=== PATIENT | female | born 1950 | race Caucasian/White ===

== ENCOUNTER 2017-08-15 19:28 | Emergency (ER) | payer MEDICARE ==
[2017-08-15 19:34] VITALS: RESP 18
[2017-08-15] MEDS ORDERED: IPRATROPIUM-ALBUTEROL 3 ML NEB INHALATION STA ×2 (20:02→20:04)
[2017-08-15] MEDS ORDERED: predniSONE 20 MG TAB PO STA (20:02)
--- NOTE | 2017-08-15 20:48 | XR ---
EXAMINATION TYPE: XR chest 2V DATE OF EXAM: 08/15/2017 COMPARISON: NONE HISTORY: Short of breath TECHNIQUE: Frontal and lateral views of the chest are obtained. FINDINGS: There is no heart failure nor confluent pneumonic infiltrate. Thoracic aorta is atheromato us. There is coarsening of interstitial markings. There is no pleural effusion. IMPRESSION: Interstitial fibrotic changes. No heart failure seen.
--- NOTE | 2017-08-15 21:27 | ED ---
SOB HPI - General Chief Complaint: Shortness of Breath Stated Complaint: JORDAN Time Seen by Provider: 08/15/17 19:56 Source: patient Mode of arrival: EMS Limitations: no limitations - History of Present Illness Initial Comments: This 67-year-old white female presents complaining of some nasal congestion as well as some shortness of breath. She states that this just started several hours prior to arrival. She also has had a cough with whitish production over the last 2-3 days. She denies any fevers or chest pain. She denies any known cardiac or pulmonary issues. She does have long-standing history of tobacco abuse. She states that she had significant nasal congestion where she could not breathe through her nose earlier tonight. No other complaints or modifying factors. - Related Data Home Medications Medication Instructions Recorded Confirmed Atorvastatin [Lipitor] 40 mg PO HS 06/08/16 08/15/17 Etodolac [Lodine] 400 mg PO BID 06/08/16 08/15/17 Levothyroxine Sodium [Levoxyl] 100 mcg PO DAILY 06/08/16 08/15/17 Loratadine [Claritin] 10 mg PO DAILY PRN 08/15/17 08/15/17 Previous Rx's Medication Instructions Recorded Albuterol Sulfate [Proair Hfa] 1 - 2 puff INHALATION Q6HR PRN #1 08/15/17 inhaler Azithromycin [Zithromax Z-pack] 0 mg PO DIRECTED #6 tab 08/15/17 Ipratropium-Albuterol Nebulize 3 ml INHALATION Q4H #50 neb 08/15/17 [Duoneb 0.5 mg-3 mg/3 ml Soln] predniSONE 20 mg PO BID #10 tab 08/15/17 Allergies Allergy/AdvReac Type Severity Reaction Status Date / Time No Known Allergies Allergy Verified 08/15/17 20:36 Review of Systems ROS Statement: Those systems with pertinent positive or pertinent negative responses have been documented in the HPI. ROS Other: All systems not noted in ROS Statement are negative. Past Medical History Past Medical History: Hyperlipidemia, Thyroid Disorder History of Any Multi-Drug Resistant Organisms: None Reported Past Surgical History: Hysterectomy Additional Past Surgical History / Comment(s): COLONOSCOPY Past Anesthesia/Blood Transfusion Reactions: Motion Sickness Past Psychological History: No Psychological Hx Reported Smoking Status: Heavy tobacco smoker Past Alcohol Use History: None Reported Past Drug Use History: None Reported - Past Family History Sister(s) Family Medical History: Cancer General Exam - General Exam Comments Initial Comments: GENERAL: The patient is well nourished and well hydrated. VITAL SIGNS: Heart rate, blood pressure, respiratory rate reviewed as recorded in nurse's notes. EYES: Pupils are round and reactive. Extraocular movements are intact. No conjunctival / lid redness or swelling. ENT: No external evidence of injury, swelling, or ecchymosis. Airway is patent. Throat is clear. There is moderate nasal congestion noted. NECK: Nontender. No swelling or evidence of injury. No subcutaneous emphysema. Trachea is midline. No thyroid mass. HEART: Regular rate and rhythm. Good peripheral pulses. LUNGS/CHEST: There is slight decreased aeration bilateral lungs. No rales, rhonchi, or wheezes. No ecchymosis, subcutaneous emphysema, or tenderness. ABDOMEN: Abdomen soft without tenderness. No palpable masses or organomegaly. No peritoneal signs. No abdominal wall swelling or ecchymosis. EXTREMITIES: No extremity tenderness. Normal muscle tone and function. No thoracolumbar tenderness. NEUROLOGIC: Sensation is grossly intact. Cranial nerve exam reveals face is symmetrical, tongue is midline, speech is clear. SKIN: No abrasions or ecchymosis is noted. No induration or masses noted. PSYCHIATRIC: Alert and oriented. Appropriate behavior and judgment. Limitations: no limitations Course Vital Signs 08/15/17 08/15/17 08/15/17 19:29 20:13 20:33 Temperature 98.6 F Pulse Rate 79 77 83 Respiratory 18 18 Rate Blood Pressure 125/68 124/65 O2 Sat by Pulse 97 98 Oximetry 08/15/17 20:53 Temperature Pulse Rate 88 Respiratory Rate Blood Pressure O2 Sat by Pulse Oximetry Medical Decision Making - Medical Decision Making The patient was seen and examined. All diagnostics were reviewed. She did receive a double DuoNeb breathing treatment when noted moderate relief of her symptoms. She also received 60 mg of prednisone orally. She had a chest x-ray which did show some degree of pulmonary fibrosis but no infiltrate or evidence of congestive heart failure. His felt as though she likely does have a degree of COPD exacerbation. She may have a degree of bronchitis and sinusitis as well. It is felt as though she is stable for discharge with the following disposition and she leaves in no distress. Return parameters are discussed. Disposition Clinical Impression: COPD (chronic obstructive pulmonary disease), Bronchitis, Tobacco abuse, Sinusitis Disposition: HOME SELF-CARE Condition: Good Additional Instructions: Please use the nebulizer machine when at home and the inhaler when you are away from home. Prescriptions: Albuterol Sulfate [Proair Hfa] 1 - 2 puff INHALATION Q6HR PRN #1 inhaler PRN Reason: Shortness Of Breath Or Wheezing Azithromycin [Zithromax Z-pack] 0 mg PO DIRECTED #6 tab Ipratropium-Albuterol Nebulize [Duoneb 0.5 mg-3 mg/3 ml Soln] 3 ml INHALATION Q4H #50 neb predniSONE 20 mg PO BID #10 tab Referrals: Tyler Saez DO [Primary Care Provider] - 1-2 days Time of Disposition: 21:25
--- NOTE | 2017-08-15 21:33 | ED ---
Disposition Clinical Impression: COPD (chronic obstructive pulmonary disease), Bronchitis, Tobacco abuse, Sinusitis Disposition: HOME SELF-CARE Condition: Good Additional Instructions: Please use the nebulizer machine when at home and the inhaler when you are away from home. Prescriptions: Albuterol Sulfate [Proair Hfa] 1 - 2 puff INHALATION Q6HR PRN #1 inhaler PRN Reason: Shortness Of Breath Or Wheezing Azithromycin [Zithromax Z-pack] 0 mg PO DIRECTED #6 tab Ipratropium-Albuterol Nebulize [Duoneb 0.5 mg-3 mg/3 ml Soln] 3 ml INHALATION Q4H #50 neb predniSONE 20 mg PO BID #10 tab Referrals: Tyler Saez DO [Primary Care Provider] - 1-2 days Savita Cabrera MD [STAFF PHYSICIAN] - 08/22/17
[2017-08-15 21:39] VITALS: BP 123/75; PULSE 100; TEMP 97.6
== END 2017-08-15 21:40 | disposition home or self-care (01) ==
LOC: EC 19:28
DX: J44.9 Chronic obstructive pulmonary disease, unspecified (principal); J32.9 Chronic sinusitis, unspecified; E78.5 Hyperlipidemia, unspecified; E07.9 Disorder of thyroid, unspecified; F17.200 Nicotine dependence, unspecified, uncomplicated; Z79.899 Other long term (current) drug therapy
CPT/HCPCS: 94640; 71020; 99285; J7512

== ENCOUNTER → 2018-06-09 | Outpatient (CLI) | payer MEDICARE ==
--- NOTE | 2018-06-12 12:39 | MM ---
Reason for exam: screening (asymptomatic). Last mammogram was performed 2 years and 8 months ago. History: Patient is postmenopausal and has history of endometrial cancer at age 46. Took estrogen for 1 year. Physical Findings: A clinical breast exam by your physician is recommended on an annual basis and results should be correlated with mammographic findings. MG Screening Mammo w CAD Bilateral CC and MLO view(s) were taken. Prior study comparison: October 20, 2015, bilateral MG screening mammo w CAD. August 13, 2014, left breast MG work up mamm w CAD LT. The breast tissue is heterogeneously dense. This may lower the sensitivity of mammography. New nodular density upper inner left breast middle third position. ASSESSMENT: Incomplete: need additional imaging evaluation, BI-RAD 0 RECOMMENDATION: Special view mammogram of the left breast. If lesion persists on supplemental views, image directed ultrasound is recommended. [facility] will attempt to contact patient to return for supplemental views and ultrasound if indicated.
== END | disposition home or self-care (01) ==
LOC: RADMAMWWP 15:27
PROVIDERS: ATTEND Family Medicine
DX: Z12.31 Encounter for screening mammogram for malignant neoplasm of breast (principal)
CPT/HCPCS: 77067

== ENCOUNTER → 2018-06-19 | Outpatient (CLI) | payer MEDICARE ==
--- NOTE | 2018-06-19 13:44 | MM ---
Reason for exam: additional evaluation requested from abnormal screening. Last mammogram was performed less than 1 month ago. History: Patient is postmenopausal and has history of endometrial cancer at age 46. Took estrogen for 1 year. Physical Findings: Nurse did not find any significant physical abnormalities on exam. MG Work Up Mamm w CAD LT Spot compression CC, spot compression MLO, and ML view(s) were taken of the left breast. Prior study comparison: June 09, 2018, bilateral MG screening mammo w CAD. October 20, 2015, bilateral MG screening mammo w CAD. The breast tissue is heterogeneously dense. This may lower the sensitivity of mammography. There is chronic nodularity in the left breast. No distinct new lesion persists at area of mammographic concern. These results were verbally communicated with the patient and result sheet given to the patient on 06/19/18. ASSESSMENT: Benign, BI-RAD 2 RECOMMENDATION: Return to routine screening mammogram schedule for both breasts.
== END | disposition home or self-care (01) ==
LOC: RADMAMWWP 12:48
DX: R92.8 Other abnormal and inconclusive findings on diagnostic imaging of breast (principal)
CPT/HCPCS: 77065

== ENCOUNTER → 2023-05-04 | Outpatient (CLI) | payer MEDICARE ==
--- NOTE | 2023-05-05 08:13 | CTL ---
EXAMINATION TYPE: CT Low Dose Lung DATE OF EXAM ORDERED: 05/04/2023 COMPARISON: None HISTORY: . Low Dose CT Lung Screening CT DLP: 66.[address] CTDI: 2.1 mGy IV CONTRAST USED: None. SCREENING VISIT: First visit COMPARISON: None. TECHNIQUE: Low dose computed tomography scan was performed through the chest at 1 millimeter thick se ctions and reconstructed images in the coronal plane at [address] DIAGNOSTIC QUALITY: Satisfactory FINDINGS: LUNG NODULES: Not presentLeft lung: no nodules identified.Right lung: no nodules identified. LUNGS: COPD: Severity: Mild Fibrosis: Severity:None Lymph nodes: None Other findings: None RIGHT PLEURAL SPACE: Effusion: None Calcification: None Thickening: None Pneumothorax: None LEFT PLEURAL SPACE: Effusion: None Calcification: None Thickening: None Pneumothorax: None HEART: Heart Size: Mildly enlarged Coronary calcification: Mild Pericardial effusion: None OTHER FINDINGS: Upper abdomen: Partially imaged 1.5 cm calculus upper pole left kidney. Moderate fixed hiatal hernia. Bony thorax: Degenerative changes Supraclavicular region: No significant abnormalityOther: No significant abnormalityI IMPRESSION: No distinct nodularity seen at this time. FOLLOW UP CT CHEST RECOMMENDATION: Follow-up screening in one year CT LUNG RAD: LUNG RAD CATEGORY 1 negative
== END | disposition home or self-care (01) ==
LOC: RADCTMAIN 15:02
PROVIDERS: ATTEND Family Medicine
DX: Z12.2 Encounter for screening for malignant neoplasm of respiratory organs (principal); F17.210 Nicotine dependence, cigarettes, uncomplicated
CPT/HCPCS: 71271

== ENCOUNTER → 2023-05-24 | Outpatient (CLI) | payer MEDICARE ==
--- NOTE | 2023-05-25 10:09 | MM ---
Reason for Exam: Screening (asymptomatic). Last mammogram was performed 4 year(s) and 11 month(s) ago. Patient History: Menarche at age 14. First Full-Term at age 19. Left ovary removed at age 46. Right ovary removed at age 46. Hysterectomy at age 46. Postmenopausal. Patient used Estrogen for 1 year. Risk Values: Nesha 5 year model risk: 1.3%. NCI Lifetime model risk: 3.5%. Prior Study Comparison: 10/20/2015 Bilateral Screening Mammogram, [facility]. 06/09/2018 Bilateral Screening Mammogram, [facility]. 06/19/2018 Left Diagnostic Mammogram, [facility]. Tissue Density: The breast tissue is heterogeneously dense. This may lower the sensitivity of mammography. Findings: Analyzed By CAD. There is no suspicious group of microcalcifications or new suspicious mass in either breast. Stable chronic nodularity within the left breast. Overall Assessment: Benign, BI-RAD 2 Management: Screening Mammogram of both breasts in 1 year. A clinical breast exam by your physician is recommended on an annual basis and results should be correlated with mammographic findings. Note on Nesha scores and lifetime risk: 1. A Nesha score greater than 3% is considered moderate risk. If this is the case, consider specialist referral to assess eligibility for a risk reducing agent. If overall lifetime risk for the development of breast cancer is 20% or higher, the patient may qualify for future screening with alternating mammogram and breast MRI. Electronically signed and approved by: Zain Mann D.O.
== END | disposition home or self-care (01) ==
LOC: RADMAMWWP 14:14
PROVIDERS: ATTEND Family Medicine
DX: Z12.31 Encounter for screening mammogram for malignant neoplasm of breast (principal); Z78.0 Asymptomatic menopausal state
CPT/HCPCS: 77067

== ENCOUNTER → 2024-06-07 | Outpatient (CLI) | payer MEDICARE ==
--- NOTE | 2024-06-07 14:49 | XR ---
EXAMINATION TYPE: XR knee complete LT DATE OF EXAM: 06/07/2024 2:31 PM CLINICAL INDICATION: Female, 74 years old with history of [id number] LT KNEE PAIN; [facility] COMPARISON: None. TECHNIQUE: XR knee complete LT; examined in Frontal, lateral and oblique projections. FINDINGS severe degeneration changes of the knee with joint space narrowing and osteophyte formation. No evidence of fracture. Soft tissues grossly unremarkable. No evidence for joint effusion however t he lateral is slightly oblique. IMPRESSION: 1. No acute osseous pathology. 2. End-stage tricompartmental osteoarthritic changes.
== END | disposition home or self-care (01) ==
LOC: RADXRYALE 14:20
PROVIDERS: ATTEND Physician Assistant
DX: M17.12 Unilateral primary osteoarthritis, left knee (principal)

== ENCOUNTER → 2024-07-03 | Outpatient (CLI) | payer MEDICARE ==
--- NOTE | 2024-07-03 16:06 | XR ---
EXAMINATION TYPE: XR foot complete LT DATE OF EXAM: 07/03/2024 COMPARISON: None HISTORY: Swelling, pain, edema TECHNIQUE: 3 view left foot FINDINGS: Structures are mildly osteopenic. No acute fractures or dislocations evident. Joint spaces are preserved. Soft tissues may have mild diffuse swelling. Follow up exams can be performed 7-10 days from acute trauma for continued pain. IMPRESSION: 1. Mild diffuse soft tissue swelling. 2. No acute osseous abnormality radiographically apparent. [facility], Workstation: [facility], 07/03/2024 4:04 PM
== END | disposition home or self-care (01) ==
LOC: RADXRYALE 15:17
PROVIDERS: ATTEND Family Medicine
DX: R60.9 Edema, unspecified (principal)

== ENCOUNTER → 2025-01-28 | Outpatient (CLI) | payer MEDICARE ==
--- NOTE | 2025-01-29 07:39 | MM ---
Reason for Exam: Screening (asymptomatic). Last mammogram was performed 1 year(s) and 9 month(s) ago. Patient History: Menarche at age 14. First Full-Term at age 19. Left ovary removed at age 46. Right ovary removed at age 46. Hysterectomy at age 46. Postmenopausal. Patient used Estrogen for 1 year. Risk Values: Nesha 5 year model risk: 1.3%. NCI Lifetime model risk: 3.1%. Prior Study Comparison: 06/09/2018 Bilateral Screening Mammogram, [facility]. 06/19/2018 Left Diagnostic Mammogram, [facility]. 05/24/2023 Bilateral MG screening mammo w CAD, [facility]. Tissue Density: The breasts are heterogeneously dense, which may obscure small masses. Findings: Analyzed By CAD. Right breast: There is no suspicious group of microcalcifications or new suspicious mass. Left breast: There is no suspicious group of microcalcifications or new suspicious mass. Overall Assessment: Negative, BI-RAD 1 Management: Screening Mammogram of both breasts in [address] [facility] will attempt to contact patient to return for supplemental views and ultrasound if indicated. Patient should continue monthly self-breast exams. A clinical breast exam by your physician is recommended on an annual basis. This exam should not preclude additional follow-up of suspicious palpable abnormalities. Note on Nesha scores and lifetime risk: 1. A Nesha score greater than 3% is considered moderate risk. If this is the case, consider specialist referral to assess eligibility for a risk reducing agent. 2. If overall lifetime risk for the development of breast cancer is 20% or higher, the patient may qualify for future screening with alternating mammogram and breast MRI. [facility], , 01/29/2025 7:35 AM. Electronically signed and approved by: Joshua Pugh DO
--- NOTE | 2025-01-29 11:22 | CTL ---
EXAMINATION TYPE: CT Low Dose Lung DATE OF EXAM: 01/28/2025 2:49 PM COMPARISON: 05/04/2023 SCREENING VISIT: Subsequent CT DIAGNOSTIC QUALITY: Limited, but interpretable CLINICAL INDICATION: Female, 74 years old with history of Z12.31 BR CA SCR Z12.2 LUNG CA SCR F17.210 SMOKER, pt smokes 1+pk/day, smoke x 40+ years, Lung cancer screening, History of tobacco use. TECHNIQUE: Low dose computed tomography scan was performed through the chest at 1 mm thick sections a nd reconstructed images in the coronal plane at 1 mm thick sections. Contrast used: mL of , (none if empty) Oral contrast used: (none if empty) CT DLP: 64 mGycm, Automated exposure control for dose reduction was used. CT CTDI: 1.99 mGy, Automated exposure control for dose reduction was used. FINDINGS: LUNG NODULES: None. LUNGS: COPD: Severity: None Fibrosis: Severity: None Lymph nodes: There is a stable 1.0 cm lymph node in the pretracheal space just above the hoa level . Smaller right peribronchial adenopathy is present. Other findings: None RIGHT PLEURAL SPACE: Effusion: None Calcification: None Thickening: None Pneumothorax: None LEFT PLEURAL SPACE: Effusion: None Calcification: None Thickening: None Pneumothorax: None HEART: Other: Ascending thoracic aorta at the level the main pulmonary artery measures 2.7 cm. The main pul monary artery at the bifurcation measures 2.4 cm. Heart Size: Normal Coronary calcification: Mild coronary artery calcifications present. Pericardial effusion: None OTHER FINDINGS: Upper abdomen: Moderate size hiatal hernia is present. There is a large nonobstructing left renal sto ne measuring 1.9 cm at the upper pole left kidney Bony thorax: Normal Supraclavicular region: Normal IMPRESSION: 1. No suspicious changes to suggest primary or metastatic neoplasm. 2. Stable 1 cm pretracheal lymph node . 3. Nonobstructing large left renal stone FOLLOW UP CT CHEST RECOMMENDATION: Follow-up low-dose CT chest one year CT LUNG RAD: Lung-Rad 2 Benign Appearance or Behavior. S modifier [facility], , 01/29/2025 11:19 AM
== END | disposition home or self-care (01) ==
LOC: RADCTMAIN 14:20
PROVIDERS: ATTEND Family Medicine
DX: Z12.31 Encounter for screening mammogram for malignant neoplasm of breast (principal); Z12.2 Encounter for screening for malignant neoplasm of respiratory organs; F17.210 Nicotine dependence, cigarettes, uncomplicated; R92.333 Mammographic heterogeneous density, bilateral breasts; N20.0 Calculus of kidney; R59.0 Localized enlarged lymph nodes; Z78.0 Asymptomatic menopausal state
CPT/HCPCS: 71271; 77063; 77067